=== PATIENT | male | born 1955 | race Caucasian/White ===

== ENCOUNTER 2020-09-15 15:07 | Emergency (ER) | payer OTHER ==
[~2020-09-15] VITALS: Ht 182.9 cm; Wt 95.5 kg
[~2020-09-15 15:07] MED LIST: HYDROCODON-ACE1 EAC7 PO; KEFLEX500 MG PO; MOBIC7.5 MG PO; NEURONTIN 400400 MG; THYROXINE; ULTRAM50 MG PO; ZOCOR10 MG
[2020-09-15 15:13] VITALS: BP 154/109; Ht 182.9 cm; Wt 95.5 kg
[2020-09-15] MEDS ORDERED: CLEOCIN HCL300 MG PO (15:41)
== END 2020-09-15 16:35 | disposition home or self-care (01) ==
LOC: D.ER 15:07
DX: L08.9 Local infection of the skin and subcutaneous tissue, unspecified (principal); G62.9 Polyneuropathy, unspecified